=== PATIENT | female | born 1985 | race Caucasian/White ===

== ENCOUNTER 2023-03-15 14:28 | Emergency (ER) | payer SELFPAY ==
[~2023-03-15] VITALS: Ht 160 cm; Wt 81.6 kg
[2023-03-15 14:41] VITALS: BP 140/82
[2023-03-15 15:15] LABS: APPEARANCE,URINE CLEAR (CLEAR); BILIRUBIN,URINE NEGATIVE (NEGATIVE); BLOOD, URINE NEGATIVE (NEGATIVE); COLOR,URINE YELLOW (YELLOW); LEUKOCYTE ESTERASE ,URINE NEGATIVE (NEGATIVE); NITRITE, URINE NEGATIVE (NEGATIVE); UGLUCOSE NEGATIVE (NEGATIVE)
[2023-03-15 15:19] VITALS: BP 116/68
--- NOTE | 2023-03-15 15:25 | NUR ---
md at bedside to evaluate the patient
[2023-03-15] MEDS ORDERED: KETOROLAC 60 MG/2 ML VIAL IM ONE (16:25)
[2023-03-15] MEDS ORDERED: MECL-303 PO (17:03)
[2023-03-15] MEDS ORDERED: IBUP-2213 PO (17:03)
--- NOTE | 2023-03-15 17:32 | NUR ---
Patient discharged with v/s stable. Written and verbal after care instructions given and explained. Patient alert, oriented and verbalized understanding of instructions. Ambulatory with steady gait. All questions addressed prior to discharge. ID band removed. Patient advised to follow up with PMD. Rx of meclizine,ibuprofen given. Patient educated on indication of medication including possible reaction and side effects. Opportunity to ask questions provided and answered.
== END 2023-03-15 17:31 | disposition home or self-care (01) ==
LOC: MED 14:28
DX: R42 Dizziness and giddiness (principal); M54.6 Pain in thoracic spine; R11.0 Nausea
CPT/HCPCS: 81003; 96372; 99283; J1885